=== PATIENT | male | born 2000 | race Caucasian/White ===

== ENCOUNTER 2021-02-24 12:32 | Emergency (ER) | payer MEDICAID, OTHER ==
[2021-02-24 13:12] VITALS: BP 119/58; PULSE 80; O2SAT 96
[2021-02-24] MEDS ORDERED: MORPHINE SULFATE 4 MG INJ ONE (13:48)
[2021-02-24] MEDS ORDERED: Zofran 4 MG/2 ML VIAL ONE (13:48)
[2021-02-24] MEDS ORDERED: Sodium Chloride 0.9% 1000 ML 1,000 ML ONE (13:49)
[2021-02-24] MEDS: Sodium Chloride 0.9% 1000 ML 1,000 ML IV STA (13:59)
[2021-02-24] MEDS: MORPHINE SULFATE 4 MG INJ IV ONE (13:59)
[2021-02-24] MEDS: Zofran 4 MG/2 ML VIAL IV ONE (14:00)
[2021-02-24 14:18] LABS: ALBUMIN 4.1 g/dL (3.5-5.0); ALKALINE PHOSPHATASE 55 U/L (38-126); ANION GAP 10.1 MEQ/L (5-15); BLOOD UREA NITROGEN 7 mg/dL (9-20); CHLORIDE 103 mmol/L (98-107); Calcium 9.1 mg/dL (8.4-10.2); Carbon Dioxide 28 mmol/L (22-30); Creatinine 1 0.67 mg/dL (0.66-1.25); EST GLOMERULAR FILTRATION RATE > 60.0 ML/MIN; Glucose 88 mg/dL (74-106); LIPASE 169 U/L (23-300); Potassium 3.8 mmol/L (3.5-5.1); SGOT/AST 68 U/L (17-59); SGPT/ALT 62 U/L (0-50); SODIUM 137 mmol/L (137-145); Total Protein 6.8 g/dL (6.3-8.2)
--- NOTE | 2021-02-24 15:08 | XRAY ---
Indication: Pain following fall from tree. Multiple contiguous axial images obtained through the cervical spine. Sagittal and coronal reformatted images obtained. Comparison: None. Axial images demonstrates C7 vertebral hemangioma. Otherwise negative for acute fracture, suspicious bony lesions, or spinal canal stenosis. Sagittal and coronal reformatted images demonstrates normal alignment with vertebral body heights/disc spaces maintained. No acute compression fracture, subluxation, or jumped facet. Normal appearing craniocervical junction. Visualized noncontrasted soft tissues unremarkable. CT head and CT chest reported separately. Impression: Incidental C7 vertebral hemangioma. Otherwise normal CT cervical spine.
--- NOTE | 2021-02-24 15:09 | XRAY ---
Indication: Pain following fall from tree. Multiple contiguous axial images obtained through the head without contrast. Comparison: July 22, 2008. Normal appearing brain parenchyma, ventricles, and bony calvarium. Visualized paranasal sinuses and mastoid air cells are clear. Impression: Continued normal CT head without contrast exam.
--- NOTE | 2021-02-24 15:12 | XRAY ---
Indication: Pain following fall from tree. Multiple contiguous axial images obtained through the chest using 80 cc Isovue 370 contrast. Comparison: None. Lungs inflated and clear. Heart not enlarged. Aorta is normal in course and caliber. No pathologic mediastinal/hilar lymphadenopathy. Bone windows reveal T9 compression fracture with approximately 50% height loss. CT abdomen/pelvis reported separately. Impression: T9 compression fracture without spinal canal or foraminal compromise. Remaining CT chest with contrast exam is negative.
--- NOTE | 2021-02-24 15:14 | XRAY ---
Indication: Pain following fall from tree. Multiple contiguous axial images obtained through the abdomen and pelvis using 80 cc Isovue 370 contrast. Comparison: None. CT chest reported separately. Beam artifact from patient's arms. Noncontrasted stomach and bowel loops appear nonobstructed. There is moderate diffuse scattered colonic fecal debris throughout. No free fluid/air. Remaining liver, gallbladder, pancreas, spleen, adrenal glands, kidneys, ureters, bladder, and aorta are unremarkable. No pathologic retroperitoneal lymphadenopathy. Osseous structures demonstrates bilateral L5 spondylolysis without spondylolisthesis. Impression: 1. Beam artifact. 2. Incidental moderate diffuse fecal stasis and L5 spondylolysis without spondylolisthesis. 3. Remaining CT abdomen/pelvis with contrast exam is negative.
--- NOTE | 2021-02-24 15:18 | XRAY ---
Indication: Pain following fall from tree. Axial, coronal, and sagittal reformatted images of the thoracic spine obtained using data from CT chest study of the same day. Comparison: None. T9 vertebral body demonstrates compression fracture with approximately 50% height loss. No other fracture, suspicious bony lesions, or spinal canal/foraminal stenosis. Sagittal and coronal reformatted images demonstrates normal alignment with disc spaces maintained. CT chest, abdomen, and pelvis reported separately. Impression: T9 compression fracture without spinal canal or foraminal compromise.
--- NOTE | 2021-02-24 15:23 | XRAY ---
Indication: Pain following fall from tree. Axial, sagittal, and coronal reformatted images of the lumbar spine obtained using the raw data from the CT abdomen/pelvis study of the same day. Comparison: None. Bilateral L5 spondylolysis. Remaining facets are symmetric. No acute fracture, suspicious bony lesions, or spinal canal stenosis. Sagittal and coronal reformatted images demonstrates normal alignment with vertebral body heights/disc spaces maintained. No acute fracture or subluxation. CT thoracic spine, chest, abdomen, and abdomen reported separately. Impression: L5 spondylolysis without spondylolisthesis.
[2021-02-24 15:53] LABS: Appearance CLEAR (CLEAR); Bilirubin NEGATIVE (NEGATIVE); Blood NEGATIVE Ery/ul (0-5); Glucose NEGATIVE (NEGATIVE); Ketones NEGATIVE (NEGATIVE); Leukocyte Esterase NEGATIVE (NEGATIVE); Nitrite NEGATIVE (NEGATIVE); Protein,Urine Dip NEGATIVE (Negative); Specific Gravity 1.045 (1.005-1.025); Urobilinogen 2 mg/dL (0-1)
[2021-02-24 15:58] LABS: Bacteria NONE SEEN /HPF (NEGATIVE); RBC NONE SEEN /HPF (0-2); WBC NONE SEEN /HPF (0-5)
--- NOTE | 2021-02-24 16:18 | ERPHSYRPT ---
- History of Present Illness Time Seen by Provider: 02/24/21 12:36 Source: patient Exam Limitations: no limitations Patient Subjective Stated Complaint: pt states fell out of a tree at work, approximately 30 ft 4 days ago Triage Nursing Assessment: pt comes in with c/o fall from 30ft from tree at work, pt states he was tied off incorrectly and fell. pt states that he is unsure if he lost consciousness at that time. pt states that since his fall her has had pain in his back, pt states lightheadedness, denies n/v, headache, right and left ribs, pt has deformity to right shoulder, laceration to right back, abrasions to right and left abdomen, right forehead, laceration to top of head, scrapes to bilat lower legs. pt is alert and oriented at this time but states periods of confusion. Physician History: 20 years old presented in the ER with chief complaint of fall while cutting tree for almost 30 feet high because he was not tied up very well and hit multiple branches on the way down and hit his head with a positive loss of consciousness for a few minutes 4 days ago. Patient woke up and noticed abrasion on the head, back, forearms and legs. Was able to walk with pain all over. Over the course of 4 days he is having some dizziness and lightheadedness with ambulation and increasing pain in the mid back moderate to severe intensity sharp in nature with movements, deep breathing, palpation, twisting or bending. Denies any focal numbness tingling or weakness. Denies any abdominal pain but has chest wall pain. No nausea or vomiting. Up-to-date with tetanus. Occurred: days ago (4) Reason for Fall: fell from height Injuries/Pain Location: head, upper extremity, chest, back, lower extremity Loss of Consciousness: prolonged (minutes) Quality: sharpness Severity of Pain-Max: severe Severity of Pain-Current: severe Modifying Factors: Improves With: immobilization, rest. Worsens With: movement Associated Symptoms (Fall): back pain, chest pain, extremity injury, headache, l ightheadedness, muscle spasms, neck pain, No shortness of breath Allergies/Adverse Reactions: Penicillins Allergy (Mild, Verified 02/24/21 13:12) Hx Tetanus, Diphtheria Vaccination/Date Given: Yes Hx Influenza Vaccination/Date Given: No Hx Pneumococcal Vaccination/Date Given: No Travel Risk - International Travel Have you traveled outside of the country in past 3 weeks: No - Coronavirus Screening Are you exhibiting any of the following symptoms?: No Close contact with a COVID-19 positive Pt in past 14-21 Days: No - Vaccine Status Have you recieved a Covid-19 vaccination: No - Review of Systems Constitutional: No Symptoms Eyes: No Symptoms Ears, Nose, & Throat: No Symptoms Respiratory: No Symptoms Cardiac: Chest Pain Abdominal/Gastrointestinal: No Symptoms Genitourinary Symptoms: No Symptoms Musculoskeletal: Back Pain, Neck Pain, Fall, Injury, Myalgias Skin: Skin Lesions Neurological: No Symptoms Psychological: No Symptoms Endocrine: No Symptoms Hematologic/Lymphatic: No Symptoms Immunological/Allergic: No Symptoms - Past Medical History Pertinent Past Medical History: No Neurological History: Other ENT History: No Pertinent History Cardiac History: No Pertinent History Respiratory History: Asthma Endocrine Medical History: No Pertinent History Musculoskeletal History: No Pertinent History GI Medical History: No Pertinent History History: No Pertinent History Psycho-Social History: Bipolar Male Reproductive Disorders: No Pertinent History Other Medical History: Behavioral - Past Surgical History Past Surgical History: No Neuro Surgical History: No Pertinent History Cardiac: No Pertinent History Respiratory: No Pertinent History Gastrointestinal: No Pertinent History Genitourinary: No Pertinent History Musculoskeletal: No Pertinent History Male Surgical History: No Pertinent History - Social History Smoking Status: Current some day smoker How long have you smoked: 15 years Exposure to second hand smoke: Yes Drug Use: none Patient Lives Alone: No - Nursing Vital Signs Nursing Vital Signs: Initial Vital Signs Temperature 99.4 F 02/24/21 13:00 Pulse Rate 80 02/24/21 13:00 Respiratory Rate 20 02/24/21 13:00 Blood Pressure 119/58 02/24/21 13:00 O2 Sat by Pulse Oximetry 96 02/24/21 13:00 Pain Scale Pain Intensity 10 - [place] Coma Score Best Eye Response (Wanda): (4) open spontaneously Best Verbal Response (Wanda): (5) oriented Best Motor Response (Wanda): (6) obeys commands Wanda Total: 15 - Physical Exam General Appearance: no apparent distress, alert Head Injury: contusions, swelling, tenderness (On the right side with superfi cial abrasions on the multiple areas of the scalp. No step in deformity.) Eye Exam: PERRL/EOMI, eyes nml inspection ENT Exam: airway nml, evidence of ENT injury, nml ext.inspection, No dental injury Neck Exam: supple, trachea midline, normal alignment, muscle spasm, paraspinous muscle tender, tenderness, tender lateral, mid-line tenderness, other (C-collar is placed) Respiratory/Chest Exam: chest tenderness (Bilateral chest wall with some abrasion at the back), normal breath sounds, No respiratory distress Cardiovascular Exam: normal heart sounds, regular rate/rhythm Gastrointestinal Exam: soft, normal bowel sounds, No tenderness, No distention, No guarding Extremity Exam: normal range of motion, capillary refill <3 sec, pelvis stable, bony point tenderness (Thoracic spine and paraspinal area.), pain with movement Neurologic Exam: alert, oriented x 3, cooperative, emissions technician II-XII nml as tested, normal mood/affect, nml cerebellar function, sensation nml, No nml station & gait, No motor deficits, No sensory deficit Skin Exam: normal color SpO2 Interpretation: normal SpO2: 96 O2 Delivery: Room Air Ordered Tests: Active Orders 24 hr Category Date Time Status IV Insertion STAT Care 02/24/21 13:28 Completed NPO (ED) STAT Care 02/24/21 13:28 Completed ABDOMEN AND PELVIS W CONTRAST [CT] Stat Exams 02/24/21 13:27 Completed CERVICAL SPINE WO CONTRAST [CT] Stat Exams 02/24/21 13:27 Completed CHEST WITH CONTRAST [CT] Stat Exams 02/24/21 13:27 Completed HEAD WITHOUT CONTRAST [CT] Stat Exams 02/24/21 13:27 Completed RECONSTRUCTION [CT] Stat Exams 02/24/21 13:27 Completed RECONSTRUCTION [CT] Stat Exams 02/24/21 13:28 Completed CBC W DIFF Stat Lab 02/24/21 13:52 Completed CMP Stat Lab 02/24/21 13:52 Completed LIPASE Stat Lab 02/24/21 13:52 Completed UA W/RFX UR CULTURE Stat Lab 02/24/21 15:43 Completed Medication Summary Discontinued Medications Generic Name Dose Route Start Last Admin Trade Name Freq PRN Reason Stop Dose Admin Sodium Chloride 1,000 mls @ 999 mls/hr 02/24/21 13:28 02/24/21 15:21 Sodium Chloride 0.9% 1000 Ml IV 02/24/21 14:28 Infused .Q1H1M STA Infusion Sodium Chloride Confirm 02/24/21 13:49 Sodium Chloride 0.9% 1000 Ml Administered 02/24/21 13:50 Dose 1,000 mls @ ud .ROUTE .STK-MED ONE Morphine Sulfate 4 mg 02/24/21 13:28 02/24/21 13:59 Morphine Sulfate 4 Mg Inj IV 02/24/21 13:29 4 mg STAT ONE Administration Morphine Sulfate Confirm 02/24/21 13:48 Morphine Sulfate 4 Mg Inj Administered 02/24/21 13:49 Dose 4 mg .ROUTE .STK-MED ONE Ondansetron HCl 4 mg 02/24/21 13:28 02/24/21 14:00 Zofran 4 Mg/2 Ml Vial IV 02/24/21 13:29 4 mg STAT ONE Administration Ondansetron HCl Confirm 02/24/21 13:48 Zofran 4 Mg/2 Ml Vial Administered 02/24/21 13:49 Dose 4 mg .ROUTE .STK-MED ONE Lab/Rad Data: Laboratory Result Diagrams 02/24/21 13:52 02/24/21 13:52 Laboratory Results 02/24/21 02/24/21 02/24/21 Range/Units 15:43 13:52 13:52 WBC 11.6 H (4.0-10.5) K/mm3 RBC 4.46 (4.1-5.6) M/mm3 Hgb 13.5 (12.5-18.0) gm/dl Hct 41.4 L (42-50) % MCV 92.8 (78-100) fl MCH 30.3 (26-32) pg MCHC 32.6 (32-36) g/dl RDW 13.8 (11.5-14.0) % Plt Count 179 (150-450) K/mm3 MPV 13.4 H (7.5-11.0) fl Gran % 66.8 H (36.0-66.0) % Eos # (Auto) 0.17 (0-0.5) Absolute Lymphs (auto) 2.19 (1.0-4.6) Absolute Monos (auto) 1.46 H (0.0-1.3) Lymphocytes % 18.9 L (24.0-44.0) % Monocytes % 12.6 H (0.0-12.0) % Eosinophils % 1.5 (0.00-5.0) % Basophils % 0.2 (0.0-0.4) % Absolute Granulocytes 7.77 H (1.4-6.9) Basophils # 0.02 (0-0.4) Sodium 137 (137-145) mmol/L Potassium 3.8 (3.5-5.1) mmol/L Chloride 103 (98-107) mmol/L Carbon Dioxide 28 (22-30) mmol/L Anion Gap 10.1 (5-15) MEQ/L BUN 7 L (9-20) mg/dL Creatinine 0.67 (0.66-1.25) mg/dL Estimated GFR > 60.0 ML/MIN Glucose 88 (74-106) mg/dL Calcium 9.1 (8.4-10.2) mg/dL Total Bilirubin 0.30 (0.2-1.3) mg/dL AST 68 H (17-59) U/L ALT 62 H (0-50) U/L Alkaline Phosphatase 55 (38-126) U/L Serum Total Protein 6.8 (6.3-8.2) g/dL Albumin 4.1 (3.5-5.0) g/dL Lipase 169 (23-300) U/L Urine Color STRAW (YELLOW) Urine Appearance CLEAR (CLEAR) Urine pH 7.0 (5-6) Ur Specific [place] 1.045 (1.005-1.025) Urine Protein NEGATIVE (Negative) Urine Ketones NEGATIVE (NEGATIVE) Urine Blood NEGATIVE (0-5) Edin/ul Urine Nitrite NEGATIVE (NEGATIVE) Urine Bilirubin NEGATIVE (NEGATIVE) Urine Urobilinogen 2 (0-1) mg/dL Ur Leukocyte Esterase NEGATIVE (NEGATIVE) Urine WBC (Auto) NONE SEEN (0-5) /HPF Urine RBC (Auto) NONE SEEN (0-2) /HPF U Epithel Cells (Auto) NONE (FEW) /HPF Urine Bacteria (Auto) NONE SEEN (NEGATIVE) /HPF Urine Culture Reflexed NO (NO) Urine Glucose NEGATIVE (NEGATIVE) mg/dL - Progress Progress: improved Progress Note: 02/24/21 Is given pain medication for symptomatic relief. Trauma scan is done which is negative except for T9 compression fracture. Patient is feeling better on reevaluation. Does not have any neuro deficit. I would give him pain medications. I have paged neurosurgery/spinal surgery and will go according to their recommendation for T9 compression fracture which would be probably outpatient follow-up and brace. I have discussed with Dr. Pino trauma surgery at [facility], reviewed patient history work-up and CT findings, recommended discharge with outpatient follow-up with Dr. Burnett. Recommended avoiding exertional activity, discussed signs symptoms of worsening needing return to ER which patient/mom seems understanding. Stable for discharge. Discussed with Dr.: Other Counseled pt/family regarding: lab results, diagnosis, need for follow-up, rad results - Departure Departure Disposition: Home Clinical Impression: Multiple contusions Compression fracture of T9 vertebra Qualifiers: Encounter type: initial encounter Qualified Code(s): S22.070A - Wedge compression fracture of T9-T10 vertebra, initial encounter for closed fracture Concussion Qualifiers: Encounter type: initial encounter Loss of consciousness presence/duration: with LOC of unspecified duration Qualified Code(s): S06.0X9A - Concussion with loss of consciousness of unspecified duration, initial encounter Fall Qualifiers: Encounter type: initial encounter Qualified Code(s): W19.XXXA - Unspecified fall, initial encounter Condition: Stable Critical Care Time: No Referrals: CALIN MARTINES MD [ACTIVE STAFF] - Follow Up with PCP/3 days DOCTOR,NO FAMILY [Primary Care Provider] - KEM BURNETT MD [NON-STAFF PHY W/O PRIVILEGES] - (call saturday morning for eval) Instructions: Concussion, Adult (DC), Contusion (DC), Vertebral Compression Fracture (DC) Additional Instructions: Take pain medications as needed. Follow-up with spinal surgery for reevaluation. Avoid any exertional activities. Return to ER if has any numbness tingling weakness of lower extremities or loss of sensations, loss of bowel or bladder control, difficulty ambulation etc. If could not get hold of Dr. Burnett call [phone] Pino Prescriptions: Hydrocodone/Acetaminophen [Hydrocodone-Acetamin 7.5-325] 1 each PO Q4-6HPRN PRN 3 Days #18 tablet MDD 6 PRN Reason: Pain
[2021-02-24 17:17] LABS: Absolute Neutrophil Ct (ANC) 7.77 (1.4-6.9); BASOPHIL % 0.2 % (0.0-0.4); Basophil (Absolute #) 0.02 (0-0.4); Eosinophil % 1.5 % (0.00-5.0); Eosinophil (Absolute #) 0.17 (0-0.5); Hematocrit 41.4 % (42-50); Hemoglobin 13.5 gm/dl (12.5-18.0); Lymphocyte (Absolute #) 2.19 (1.0-4.6); Lymphocytes % 18.9 % (24.0-44.0); Mean Cell Volume 92.8 fl (78-100); Mean Corpuscular Hemoglobin 30.3 pg (26-32); Mean Corpuscular Hgb Concent. 32.6 g/dl (32-36); Mean Platelet Volume 13.4 fl (7.5-11.0); Monocyte (Absolute #) 1.46 (0.0-1.3); Monocytes % 12.6 % (0.0-12.0); Neutrophil % 66.8 % (36.0-66.0); Platelet Count 179 K/mm3 (150-450); Red Blood Count 4.46 M/mm3 (4.1-5.6); Red Cell Distribution Width 13.8 % (11.5-14.0); White Blood Count 11.6 K/mm3 (4.0-10.5)
== END 2021-02-24 17:04 | disposition home or self-care (01) ==
LOC: ED 12:32
DX: S22.070A Wedge compression fracture of T9-T10 vertebra, initial encounter for closed fracture (principal); S06.0X9A Concussion with loss of consciousness of unspecified duration, initial encounter; W19.XXXA Unspecified fall, initial encounter
CPT/HCPCS: 36000; 36415; 70450; 71260; 72125; 74177; 76376; 80053; 81001; 83690; 85025; 96360; 96374; 96375; 99284; J2270; J2405